=== PATIENT | female | born 1970 | race Caucasian/White ===

== ENCOUNTER 2024-05-03 14:19 | Emergency (ER) | payer MEDICAID, MEDICARE ==
[2024-05-03 14:33] VITALS: O2SAT 100
--- NOTE | 2024-05-03 14:54 | ED Physician Documentation ---
History of Present Illness - Stated complaint Stated Complaint: RT HIP PX - Chief complaint Chief Complaint: Ext Problem - History obtained from History obtained from: Patient - History of Present Illness Timing: Prior to arrival - Additonal information Additional information: Patient 53-year-old female visiting from [place] woke up this morning and tried to pull on her pants when she felt a pop in her right hip. She had sudden onset severe pain she was able to walk but with a limp up words. Patient with chronic multiple surgeries to her back for history of disc degenerative disease. She notes she does not take anything for pain regularly she did take some Tylenol before coming in without significant relief. Patient has no history of surgeries or fractures to her right hip. PD PAST MEDICAL HISTORY - Past Medical History Past Medical History: Yes GI: GERD Psych: Depression, Anxiety - Past Surgical History Past Surgical History: Yes General: Cholecystectomy Ortho: Other /[employer]: section - Present Medications Home Medications: Ambulatory Orders Medication Instructions Recorded Confirmed Cholecalciferol [Vitamin D3] 50,000 unit ORAL Q7D 05/03/24 05/03/24 Cyclobenzaprine [Flexeril] 10 mg PO TID PRN #20 tablet 05/03/24 DULoxetine [Cymbalta] 60 mg PO DAILY 05/03/24 05/03/24 Lidocaine Patch 5% [Lidoderm Patch] 1 patch TOP DAILY PRN #10 patch 05/03/24 Naproxen 250 mg PO BID PRN #15 tablet 05/03/24 Pantoprazole Sodium 40 mg PO DAILY 05/03/24 05/03/24 Trazodone HCl 100 mg PO HS 05/03/24 05/03/24 - Allergies Allergies/Adverse Reactions: Allergies Allergy/AdvReac Type Severity Reaction Status Date / Time No Known Drug Allergies Allergy Verified 05/03/24 14:24 - Social History Does the pt smoke?: No Smoking Status: Never smoker Does the pt drink ETOH?: No Does the pt have substance abuse?: No - Immunizations Immunizations are current?: Yes - POLST Patient has POLST: No PD ED PE NORMAL - Vitals Vital signs reviewed: Yes - General General: Alert and oriented X 3 - HEENT HEENT: Atraumatic - Neck Neck: Supple, no meningeal sign - Cardiac Cardiac: RRR, No gallop - Respiratory Respiratory: No respiratory distress, Clear bilaterally - Free text exam Free text exam: Physical exam of right lower extremity compared to left shows reproducible lateral right hip tenderness on palpation strength intact in lower extremities on examination bilaterally 5 out of 5 sensation intact 5 out of 5 as well. Patient is able to bear weight on right leg. Results - Vitals Vitals: Vital Signs - 24 hr 05/03/24 05/03/24 14:25 16:38 Temperature 36.5 C 36.2 C L Heart Rate 77 74 Respiratory 16 16 Rate Blood Pressure 132/82 H 142/80 H O2 Saturation 100 100 Oxygen O2 Source Room air - Rads (name of study) X-ray right hip and pelvis Relevant Findings:: EMP independent interpretation of test (No obvious deformity fracture or acute finding on imaging) PD Medical Decision Making - ED course Complexity details: reviewed old records, reviewed results ED course: Patient is a 53-year-old female presenting to the emergency department with right hip pain after waking up this morning feeling a pop in her hip when trying to pull on her pants. Patient sustained pain to lateral right hip no obvious deformity on arrival she is able to bear weight on this hip. Patient has no previous injuries to right hip. Vitals are stable on arrival physical exam shows lateral tenderness to right hip no lumbar spinous process tenderness. However lumbar paraspinal muscle tenderness on examination. DP and PT pulses 2+ equal bilaterally good capillary refill no lower leg swelling sensation intact bilaterally with good strength 5 out of 5 equal bilaterally. X-rays obtained showing no acute fracture no dislocation there is bilateral pelvis osteoarthritis consistent with patient's past history. Additionally notable fusion of lumbar back also noted no loose hardware on imaging. Patient feels better after Flexeril given here in the emergency department she feels safe to go home will give short course of Flexeril naproxen and lidocaine patches patient is not from here but will be returning to [place] shortly she will follow-up with her PCP there patient given instructions to return with any discoloration numbness saddle anesthesia incontinence or worsening pain. Patient understands and is agreeable with this plan Departure - Departure Disposition: 01 Home, Self Care Clinical Impression: Muscle strain, Acute right hip pain, Pain of lower extremity Condition: Good Prescriptions: Cyclobenzaprine [Flexeril] 10 mg PO TID PRN #20 tablet PRN Reason: Spasms Lidocaine Patch 5% [Lidoderm Patch] 1 patch TOP DAILY PRN #10 patch PRN Reason: pain Naproxen 250 mg PO BID PRN #15 tablet PRN Reason: Pain Comments: You were seen here in the emergency department for your right hip pain your workup here showed some osteoarthritis but no acute fracture or dislocation reassuring imaging I have given you a pain medication as listed above please take as prescribed Flexeril may make you sleepy please take as prescribed. Forms: PCP List
[2024-05-03] MEDS: CYCLOBENZAPRINE 10 MG TABLET PO STA (16:06)
--- NOTE | 2024-05-03 16:13 | XRAY Report ---
PROCEDURE: Hip w/Pelvis 2-3V RT INDICATIONS: pain TECHNIQUE: 3 views of the hip were acquired. COMPARISON: None. FINDINGS: Bones: No fractures or dislocations. No suspicious bony lesions. Lower lumbar spine instrumented fu erica. Pelvic ring intact. Moderate bilateral hip joint space narrowing and small marginal osteophytes . No remodeling. No head flattening. Soft tissues: No suspicious soft tissue calcifications or masses. IMPRESSION: Mild to moderate bilateral hip osteoarthritis Reviewed by: Frank Calle MD on 05/03/2024 3:12 PM [facility] Approved by: Frank Calle MD on 05/03/2024 3:12 PM [facility] Station ID: [id number]
[2024-05-03 16:44] VITALS: BP 142/80
== END 2024-05-03 17:17 | disposition home or self-care (01) ==
LOC: ED 14:19
DX: S76.011A Strain of muscle, fascia and tendon of right hip, initial encounter (principal); X58.XXXA Exposure to other specified factors, initial encounter
CPT/HCPCS: 73502; 99283; 99284; A9270